=== PATIENT | male | born 1960 ===

== ENCOUNTER 2020-11-07 06:50 | Day surgery (SDC) | payer OTHER ==
[~2020-11-07 06:50] MED LIST: DULCOLAX5 MG PO; GABAPENTIN800 M1 PO; PRILOSEC OTC20 MG PO; TOPROL XL100 M1 PO
== END 2020-11-07 15:06 | disposition home or self-care (01) ==
LOC: CIR.AMB 06:50
PROVIDERS: ATTEND Specialist
DX: C15.8 Malignant neoplasm of overlapping sites of esophagus (principal); Z20.822 Contact with and (suspected) exposure to COVID-19
CPT/HCPCS: 36561; C1751

== ENCOUNTER 2021-07-12 09:16 | Outpatient (CLI) | payer OTHER | END 2021-07-12 10:09 | disposition home or self-care (01) | LOC: SONOGRAMA 09:16 | PROVIDERS: ATTEND Pathology Anatomic Pathology & Clinical Pathology | DX: L04.2 Acute lymphadenitis of upper limb (principal); C15.4 Malignant neoplasm of middle third of esophagus; C11.1 Malignant neoplasm of posterior wall of nasopharynx ==

== ENCOUNTER 2021-12-19 12:08 | Inpatient (IN) | payer OTHER ==
[~2021-12-19] VITALS: Ht 172.7 cm; Wt 73.9 kg
[2021-12-20] MEDS ORDERED: METFORMIN HCL500 M4 (09:03)
[2021-12-20] MEDS ORDERED: OMEPRAZOLE20 MG (09:04)
[2021-12-21] MEDS ORDERED: PEPCID AC20 MG PO (17:45)
[2021-12-21] MEDS ORDERED: DEXAMETHAS0.5 MG/5 M PO (17:46)
== END 2021-12-21 17:57 | disposition home or self-care (01) | DRG 392 ==
LOC: MEDI 12:08
PROVIDERS: ADMIT Internal Medicine Hematology & Oncology; ATTEND Internal Medicine Hematology & Oncology
PROC: 3E0336Z Introduction of Nutritional Substance into Peripheral Vein, Percutaneous Approach (ICD-10-PCS; principal; 2021-12-19)
DX: K21.00 Gastro-esophageal reflux disease with esophagitis, without bleeding (principal); C15.9 Malignant neoplasm of esophagus, unspecified; E44.0 Moderate protein-calorie malnutrition; T45.1X5A Adverse effect of antineoplastic and immunosuppressive drugs, initial encounter; E86.0 Dehydration; Z95.828 Presence of other vascular implants and grafts
CPT/HCPCS: 240

== ENCOUNTER 2022-01-10 14:53 | Inpatient (IN) | payer OTHER ==
[~2022-01-10 14:53] MED LIST changes: +DEXAMETHAS0.5 MG/5 M PO; +METFORMIN HCL500 M4; +OMEPRAZOLE20 MG; +PEPCID AC20 MG PO
[2022-01-17] MEDS ORDERED: LORAZEPAM0.5 MG PO (18:17)
[2022-01-17] MEDS ORDERED: SERTRALINE HCL50 MG PO (18:17)
[2022-01-17] MEDS ORDERED: RESTORIL15 MG PO (18:18)
[2022-01-17] MEDS ORDERED: PEPCID AC20 MG PO (18:18)
[2022-01-17] MEDS ORDERED: OMEPRAZOLE20 MG PO (18:19)
[2022-01-17] MEDS ORDERED: DEXAMETHAS0.5 MG/5 M PO (18:19)
[2022-01-17] MEDS ORDERED: SUCRALFATE1 GM/10 ML PO (18:20)
== END 2022-01-17 18:31 | disposition home or self-care (01) | DRG 392 ==
LOC: SURH 14:53
PROVIDERS: ADMIT Internal Medicine Hematology & Oncology; ATTEND Internal Medicine Hematology & Oncology
PROC: 3E0336Z Introduction of Nutritional Substance into Peripheral Vein, Percutaneous Approach (ICD-10-PCS; principal; 2022-01-11)
DX: K21.00 Gastro-esophageal reflux disease with esophagitis, without bleeding (principal); E44.0 Moderate protein-calorie malnutrition; C15.5 Malignant neoplasm of lower third of esophagus; E86.0 Dehydration; F43.20 Adjustment disorder, unspecified; T45.1X5A Adverse effect of antineoplastic and immunosuppressive drugs, initial encounter; R13.19 Other dysphagia; Z20.822 Contact with and (suspected) exposure to COVID-19
CPT/HCPCS: 240